=== PATIENT | male | born 1960 | race Caucasian/White ===

== ENCOUNTER 2017-02-07 11:04 | Observation (INO) | payer OTHER ==
[~2017-02-07] VITALS: Ht 182.9 cm; Wt 122.5 kg
--- NOTE | 2017-02-07 11:25 | EKG ---
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
[2017-02-07] MEDS ORDERED: ACETAMINOPHEN 325 MG TABLET PO PRN (11:45)
[2017-02-07] MEDS ORDERED: ONDANSETRON PF 4 MG/2 ML VIAL. IV PRN (11:45)
[2017-02-07 11:59] LABS: BASO # 0.1 x10^3/uL (0.0-0.2); BASO % 1 % (0-3); EOS # 0.2 x10^3/uL (0.0-0.7); EOS % 2 % (0-3); HEMATOCRIT 44.3 % (39.0-53.0); HEMOGLOBIN 15.1 g/dL (13.0-17.5); LYMPH # 2.3 x10^3/uL (1.0-4.8); LYMPH % 27 % (24-48); MEAN CORPUSCULAR HEMOGLOBIN 28 pg (25-35); MEAN CORPUSCULAR HGB CONC 34 g/dL (31-37); MEAN CORPUSCULAR VOLUME 82 fL (79-100); MONO # 0.7 x10^3/uL (0.0-1.1); MONO % 9 % (0-9); NEUT # 5.1 x10^3uL (1.8-7.7); NEUT % 61 % (31-73); PLATELET COUNT 147 x10^3/uL (140-400); RED BLOOD COUNT 5.43 x10^6/uL (4.30-5.70); RED CELL DISTRIBUTION WIDTH 14.1 % (11.5-14.5); WHITE BLOOD COUNT 8.3 x10^3/uL (4.0-11.0)
[2017-02-07 12:06] LABS: ALBUMIN 3.6 g/dL (3.4-5.0); ALBUMIN/GLOBULIN RATIO 1.1 (1.0-1.7); CALCIUM 8.7 mg/dL (8.5-10.1); GFR 77.9; MAGNESIUM 2.1 mg/dL (1.8-2.4); POTASSIUM 3.9 mmol/L (3.5-5.1); TOTAL BILIRUBIN 0.5 mg/dL (0.2-1.0); TOTAL PROTEIN 6.9 g/dL (6.4-8.2)
[2017-02-07 12:14] LABS: CREATINE KINASE 124 U/L (39-308)
[2017-02-07 12:28] VITALS: BP 135/84
[2017-02-07] MEDS ORDERED: IBUP800T19 PO (12:51)
[2017-02-07] MEDS ORDERED: ATEN25TA PO (12:51)
[2017-02-07] MEDS ORDERED: METF500T4 PO (12:51)
[2017-02-07] MEDS ORDERED: SIMV20TA3 PO (12:52)
--- NOTE | 2017-02-07 13:49 | CARD ---
APPROVED REPORT EXAM: Two-dimensional and M-mode echocardiogram with Doppler and color Doppler. Other Information Quality : Good INDICATION Abnormal ECG Dizziness and Vertigo Bradycardia 2D DIMENSIONS RVDd2.8 (2.9-3.5cm)Left Atrium(2D)4.6 (1.6-4.0cm) IVSd1.2 (0.7-1.1cm)Aortic Root(2D)2.6 (2.0-3.7cm) LVDd5.8 (3.9-5.9cm)LVOT Diameter2.2 (1.8-2.4cm) PWd1.2 (0.7-1.1cm)LVDs3.5 (2.5-4.0cm) FS (%) 30.0 %SV116.7 ml LVEF(%)60.0 (>50%) Aortic Valve AoV Peak Mason.170.6cm/sAoV VTI32.0cm AO Peak GR.11.6mmHgLVOT Peak Mason.110.0cm/s LVOT VTI 24.52cmAO Mean GR.6mmHg DIYA (VMAX)2.07jg7NWZ (VTI)2.84cm2 Mitral Valve MV E Qqbujubq86.8cm/sMV DECEL SBPR940vs MV A Dzytxitu52.6cm/sE/A Ratio1.4 Tricuspid Valve TR P. Dnnsyqnk220pf/sRAP OGCKRULQ9ypYe TR Peak Gr.38hgFmGWTI14muLu Pulmonary Vein S1 Gnhmgkrd42.5cm/sD2 Kzafjrpq75.6cm/s LEFT VENTRICLE The left ventricle is normal size. There is mild concentric left ventricular hypertrophy. The Ejectio n Fraction is 55%. There is normal LV segmental wall motion. RIGHT VENTRICLE The right ventricle is borderline dilated. The right ventricular systolic function is normal. ATRIA The left atrium is mildly dilated. The right atrium is mildly dilated. The interatrial septum is inta ct with no evidence for an atrial septal defect or patent foramen ovale as noted on 2-D or Doppler im aging. AORTIC VALVE The aortic valve is calcified but opens well. Doppler and Color Flow revealed trace aortic regurgitat ion. There is no significant aortic valvular stenosis. MITRAL VALVE The mitral valve is normal in structure and function. There is no evidence of mitral valve prolapse. There is no mitral valve stenosis. Doppler and Color-flow revealed trace to mild mitral regurgitation . TRICUSPID VALVE The tricuspid valve is normal in structure and function. Doppler and Color Flow revealed trace tricus pid regurgitation. The PA pressure was estimated at 35 mmHg. There is no tricuspid valve stenosis. PULMONIC VALVE Doppler and Color Flow revealed no pulmonic valvular regurgitation. There is no pulmonic valvular shirley nosis. GREAT VESSELS The aortic root is normal in size. The ascending aorta is mildly dilated at 3.6 cm. The IVC is normal in size and collapses >50% with inspiration. PERICARDIAL EFFUSION There is no evidence of significant pericardial effusion. Critical Notification Critical Value: No <Conclusion> The Ejection Fraction is 55%. There is normal LV segmental wall motion. Doppler and Color Flow revealed trace tricuspid regurgitation. The PA pressure was estimated at 35 mm Hg. The ascending aorta is mildly dilated at 3.6 cm.
--- NOTE | 2017-02-07 14:17 | RAD ---
Indication dizzy. Shortness of breath. PA and lateral views of the chest were obtained. No prior imaging of the chest is available. The heart and pulmonary vessels appear normal. The lungs are clear of acute infiltrates. Significant pleural fluid is not seen. There is no pneumothorax. There are modest degenerative changes in the thoracic spine. IMPRESSION: No acute or focal process is seen in the chest
[2017-02-07 15:15] VITALS: BP 135/84
--- NOTE | 2017-02-07 15:26 | PDOC2 ---
VANESA ACEVES APRN 02/07/17 1526: CONSULT Date of Admission DATE: 02/07/17 TIME: 15:23 Reason for Consult: bradycardia History of Present Illness Mr Adams is a 56 year old male with history of hypertension, hyperlipidemia and diabetes mellitus who presents for symptomatic bradycardia. He reports he has been experiencing episodes of lightheadedness with associated diaphoresis and dyspnea off and on for about 2 weeks. Today he was at work (at [employer]) and after walking down the lane began to feel lightheaded. He checked his heart rate with an oxygen sat monitor and reports his rate was 37. He then had a nurse recheck his rate and was told it was low. He presented to his primary care office for evaluation and was seen and told to come to hospital for admission and observation. He denies chest pain. He reports occasional feeling like his heart is too slow. He does take Atenolol twice daily which he reports was originally started due to a fast heart rate. He denies any syncope or problems with functional capacity. He denies any congestive symptoms. Past Medical History hypertension, hyperlipidemia and diabetes mellitus Past Surgical History repair deviated septum Family History father reportedly at 52 from sudden cardiac . 1 brother with history of ventricular tachycardia and AICD placement. Further family history includes diabetes and hypertension. 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 Current Medications Current Medications Acetaminophen (Tylenol) 650 mg PRN Q6HRS PRN PO Headaches, Temp > 101.5F; Start 02/07/17 at 11:45 Ondansetron HCl (Zofran) 4 mg PRN Q8HRS PRN IV NAUSEA/VOMITING; Start 02/07/17 at 11:45 Active Scripts Active Reported Simvastatin 20 Mg Tablet 1 Tab PO QHS Metformin Hcl 500 Mg Tablet 1 Tab PO BID Atenolol 25 Mg Tablet 1 Tab PO BID Ibuprofen 800 Mg Tablet 1 Tab PO TID PRN Allergies: Coded Allergies: fluocinonide (Verified Allergy, Mild, Rash, 02/07/17) naproxen (Verified Allergy, Mild, Hives, 02/07/17) Review of System as per HPI General: Alert, Oriented X3, Cooperative, No acute distress HEENT: Atraumatic, EOMI Heart: Regular rate, Normal S1, Normal S2, No murmurs, Other (no gallops, clicks or rubs) Abdomen: Normal bowel sounds, Soft, No tenderness Extremities: No cyanosis, Normal pulses Neuro: Normal speech, Strength at 5/5 X4 ext Psych/Mental Status: Mental status NL, Mood NL VITALS Vital Signs Date Time Temp Pulse Resp B/P (MAP) Pulse Ox O2 Delivery O2 Flow Rate FiO2 02/07/17 12:28 98.5 65 20 135/84 (101) 98 Room Air Labs Laboratory Tests Test 02/07/17 11:35 White Blood Count 8.3 x10^3/uL (4.0-11.0) Red Blood Count 5.43 x10^6/uL (4.30-5.70) Hemoglobin 15.1 g/dL (13.0-17.5) Hematocrit 44.3 % (39.0-53.0) Mean Corpuscular Volume 82 fL (79-100) Mean Corpuscular Hemoglobin 28 pg (25-35) Mean Corpuscular Hemoglobin Concent 34 g/dL (31-37) Red Cell Distribution Width 14.1 % (11.5-14.5) Platelet Count 147 x10^3/uL (140-400) Neutrophils (%) (Auto) 61 % (31-73) Lymphocytes (%) (Auto) 27 % (24-48) Monocytes (%) (Auto) 9 % (0-9) Eosinophils (%) (Auto) 2 % (0-3) Basophils (%) (Auto) 1 % (0-3) Neutrophils # (Auto) 5.1 x10^3uL (1.8-7.7) Lymphocytes # (Auto) 2.3 x10^3/uL (1.0-4.8) Monocytes # (Auto) 0.7 x10^3/uL (0.0-1.1) Eosinophils # (Auto) 0.2 x10^3/uL (0.0-0.7) Basophils # (Auto) 0.1 x10^3/uL (0.0-0.2) D-Dimer (Ofe) 0.33 mg/L (0.00-0.50) Sodium Level 141 mmol/L (136-145) Potassium Level 3.9 mmol/L (3.5-5.1) Chloride Level 106 mmol/L (98-107) Carbon Dioxide Level 26 mmol/L (21-32) Anion Gap 9 (6-14) Blood Urea Nitrogen 24 mg/dL (8-26) Creatinine 1.0 mg/dL (0.7-1.3) Estimated GFR (Cockcroft-Gault) 77.9 BUN/Creatinine Ratio 24 (6-20) Glucose Level 104 mg/dL (70-99) Calcium Level 8.7 mg/dL (8.5-10.1) Magnesium Level 2.1 mg/dL (1.8-2.4) Total Bilirubin 0.5 mg/dL (0.2-1.0) Aspartate Amino Transf (AST/SGOT) 17 U/L (15-37) Alanine Aminotransferase (ALT/SGPT) 30 U/L (16-63) Alkaline Phosphatase 65 U/L (46-116) Creatine Kinase 124 U/L (39-308) Troponin I Quantitative < 0.017 ng/mL (0-0.055) BP-Awg-B-Type Natriuretic Peptide 197 pg/mL (0-124) Total Protein 6.9 g/dL (6.4-8.2) Albumin 3.6 g/dL (3.4-5.0) Albumin/Globulin Ratio 1.1 (1.0-1.7) Thyroid Stimulating Hormone (TSH) 1.751 uIU/mL (0.358-3.740) Images telemetry - sinus rhythm 60s with frequent isolated PVCs EKG - sinus rhythm 60 bpm with PVC, non specific inferior T abn, early R transition, QTC 429. Assessment/Plan 1. bradycardia - heart rate 60-70 range currently with frequent PVCs. Hold beta blockers. 2. frequent ventricular ectopy - echo wnl. consider outpatient MPI, and month long MCT to monitor for arrhythmias and PVC burden. 3. hypertension - bp controlled. Suggest lisinopril in place of atenolol for pressure control. 4. hyperlipidemia - check lipids 5. diabetes mellitus - per PCP Problems: JAMIR GIORDANO MD 02/08/17 2320: CONSULT Allergies: Coded Allergies: fluocinonide (Verified Allergy, Mild, Rash, 02/07/17) naproxen (Verified Allergy, Mild, Hives, 02/07/17) VANESA ACEVES CLINICAL APPLICATION CONSULTANT Feb 07, 2017 15:26 JAMIR GIORDANO MD Feb 08, 2017 23:20
[2017-02-07 18:58] VITALS: BP 136/76
[2017-02-07] MEDS ORDERED: metFORMIN 500 MG TABLET PO SCH (21:00)
[2017-02-07] MEDS ORDERED: SIMVASTATIN 20 MG TABLET PO SCH (21:00)
[2017-02-07 22:55] VITALS: BP 131/70
[2017-02-07 23:52] VITALS: BP 114/76
[2017-02-08 05:11] VITALS: BP 132/72
[2017-02-08 06:23] LABS: BASO % 1 % (0-3); EOS # 0.2 x10^3/uL (0.0-0.7); EOS % 3 % (0-3); HEMATOCRIT 44.1 % (39.0-53.0); HEMOGLOBIN 14.9 g/dL (13.0-17.5); LYMPH % 26 % (24-48); MEAN CORPUSCULAR HEMOGLOBIN 27 pg (25-35); MEAN CORPUSCULAR HGB CONC 34 g/dL (31-37); MEAN CORPUSCULAR VOLUME 81 fL (79-100); MONO # 0.6 x10^3/uL (0.0-1.1); MONO % 8 % (0-9); NEUT # 4.9 x10^3uL (1.8-7.7); NEUT % 63 % (31-73); PLATELET COUNT 132 x10^3/uL (140-400); RED BLOOD COUNT 5.43 x10^6/uL (4.30-5.70); RED CELL DISTRIBUTION WIDTH 14.1 % (11.5-14.5); WHITE BLOOD COUNT 7.8 x10^3/uL (4.0-11.0)
[2017-02-08 06:36] LABS: ALBUMIN 3.4 g/dL (3.4-5.0); CALCIUM 8.1 mg/dL (8.5-10.1); CREATININE 0.9 mg/dL (0.7-1.3); GFR 87.9; MAGNESIUM 2.1 mg/dL (1.8-2.4); POTASSIUM 3.7 mmol/L (3.5-5.1); TOTAL BILIRUBIN 0.6 mg/dL (0.2-1.0); TOTAL PROTEIN 6.7 g/dL (6.4-8.2)
[2017-02-08] MEDS: metFORMIN 500 MG TABLET PO SCH ×2 (07:57→16:56)
--- NOTE | 2017-02-08 09:01 | PDOC ---
VANESA ACEVES APRN 02/08/17 0901: PROGRESS NOTES Assessment 1. bradycardia - No bradycardia since admission. I suspect low heart rate was related to PVCs. He remains 60-70 range currently with PVCs. Consider resume beta eden at 1/2 dose with outpatient MCT. 2. frequent ventricular ectopy - echo wnl. outpatient MPI, and month long MCT to monitor for arrhythmias and PVC burden. 3. hypertension - blood pressure remains controlled. 4. hyperlipidemia - FLP pending, continue statin 5. diabetes mellitus - per PCP Problems: Subjective feeling better today. no lightheadedness. one episode of lightheadedness last pm reportedly associated with bigeminal PVCs. No chest pain, no dyspnea. Objective Tele - sinus rhythm with frequent isolated PVCs, occasional couplets and rare episodes of bigeminy Vital Signs Date Time Temp Pulse Resp B/P (MAP) Pulse Ox O2 Delivery O2 Flow Rate FiO2 02/08/17 08:00 Room Air 02/08/17 05:11 97.4 60 17 132/72 (92) 96 Intake and Output 02/08/17 07:00 Intake Total 1250 ml Output Total 600 ml Balance 650 ml Intake Oral 1250 ml Output Urine Total 600 ml # Voids 2 Abdomen: Normal bowel sounds, Soft, No tenderness Heart: Regular rate, Normal S1, Normal S2 Extremities: No cyanosis, No edema, Normal pulses General: Alert, Oriented X3, Cooperative HEENT: Atraumatic, EOMI Lungs: Clear to auscultation, Normal air movement Neuro: Normal speech, Strength at 5/5 X4 ext Psych/Mental Status: Mental status NL Review of Relevant I have reviewed the following items jake (where applicable) has been applied. Labs Laboratory Tests Test 02/07/17 11:35 02/07/17 11:36 02/07/17 18:10 02/08/17 05:49 White Blood Count 8.3 x10^3/uL (4.0-11.0) 7.8 x10^3/uL (4.0-11.0) Red Blood Count 5.43 x10^6/uL (4.30-5.70) 5.43 x10^6/uL (4.30-5.70) Hemoglobin 15.1 g/dL (13.0-17.5) 14.9 g/dL (13.0-17.5) Hematocrit 44.3 % (39.0-53.0) 44.1 % (39.0-53.0) Mean Corpuscular Volume 82 fL (79-100) 81 fL (79-100) Mean Corpuscular Hemoglobin 28 pg (25-35) 27 pg (25-35) Mean Corpuscular Hemoglobin Concent 34 g/dL (31-37) 34 g/dL (31-37) Red Cell Distribution Width 14.1 % (11.5-14.5) 14.1 % (11.5-14.5) Platelet Count 147 x10^3/uL (140-400) 132 x10^3/uL (140-400) Neutrophils (%) (Auto) 61 % (31-73) 63 % (31-73) Lymphocytes (%) (Auto) 27 % (24-48) 26 % (24-48) Monocytes (%) (Auto) 9 % (0-9) 8 % (0-9) Eosinophils (%) (Auto) 2 % (0-3) 3 % (0-3) Basophils (%) (Auto) 1 % (0-3) 1 % (0-3) Neutrophils # (Auto) 5.1 x10^3uL (1.8-7.7) 4.9 x10^3uL (1.8-7.7) Lymphocytes # (Auto) 2.3 x10^3/uL (1.0-4.8) 2.0 x10^3/uL (1.0-4.8) Monocytes # (Auto) 0.7 x10^3/uL (0.0-1.1) 0.6 x10^3/uL (0.0-1.1) Eosinophils # (Auto) 0.2 x10^3/uL (0.0-0.7) 0.2 x10^3/uL (0.0-0.7) Basophils # (Auto) 0.1 x10^3/uL (0.0-0.2) 0.0 x10^3/uL (0.0-0.2) D-Dimer (Ofe) 0.33 mg/L (0.00-0.50) Sodium Level 141 mmol/L (136-145) 141 mmol/L (136-145) Potassium Level 3.9 mmol/L (3.5-5.1) 3.7 mmol/L (3.5-5.1) Chloride Level 106 mmol/L (98-107) 104 mmol/L (98-107) Carbon Dioxide Level 26 mmol/L (21-32) 29 mmol/L (21-32) Anion Gap 9 (6-14) 8 (6-14) Blood Urea Nitrogen 24 mg/dL (8-26) 16 mg/dL (8-26) Creatinine 1.0 mg/dL (0.7-1.3) 0.9 mg/dL (0.7-1.3) Estimated GFR (Cockcroft-Gault) 77.9 87.9 BUN/Creatinine Ratio 24 (6-20) 18 (6-20) Glucose Level 104 mg/dL (70-99) 128 mg/dL (70-99) Calcium Level 8.7 mg/dL (8.5-10.1) 8.1 mg/dL (8.5-10.1) Magnesium Level 2.1 mg/dL (1.8-2.4) 2.1 mg/dL (1.8-2.4) Total Bilirubin 0.5 mg/dL (0.2-1.0) 0.6 mg/dL (0.2-1.0) Aspartate Amino Transf (AST/SGOT) 17 U/L (15-37) 17 U/L (15-37) Alanine Aminotransferase (ALT/SGPT) 30 U/L (16-63) 29 U/L (16-63) Alkaline Phosphatase 65 U/L (46-116) 63 U/L (46-116) Creatine Kinase 124 U/L (39-308) 102 U/L (39-308) 67 U/L (39-308) Troponin I Quantitative < 0.017 ng/mL (0-0.055) < 0.017 ng/mL (0-0.055) < 0.017 ng/mL (0-0.055) TD-Phb-H-Type Natriuretic Peptide 197 pg/mL (0-124) Total Protein 6.9 g/dL (6.4-8.2) 6.7 g/dL (6.4-8.2) Albumin 3.6 g/dL (3.4-5.0) 3.4 g/dL (3.4-5.0) Albumin/Globulin Ratio 1.1 (1.0-1.7) 1.0 (1.0-1.7) Thyroid Stimulating Hormone (TSH) 1.751 uIU/mL (0.358-3.740) Nasal Screen MRSA (PCR) Negative (Negative) Medications Current Medications Acetaminophen (Tylenol) 650 mg PRN Q6HRS PRN PO Headaches, Temp > 101.5F; Start 02/07/17 at 11:45 Ondansetron HCl (Zofran) 4 mg PRN Q8HRS PRN IV NAUSEA/VOMITING; Start 02/07/17 at 11:45 Metformin HCl (Glucophage) 500 mg BID PO ; Start 02/07/17 at 21:00; Stop at 21:00; Status DC Simvastatin (Zocor) 20 mg QHS PO Last administered on 02/07/17 21:12; Start at 21:00 Metformin HCl (Glucophage) 500 mg BIDBFRMEAL PO Last administered on 02/08/17 07:57; Start 02/08/17 at 07:30 Active Scripts Active Reported Simvastatin 20 Mg Tablet 1 Tab PO QHS Metformin Hcl 500 Mg Tablet 1 Tab PO BID Atenolol 25 Mg Tablet 1 Tab PO BID Ibuprofen 800 Mg Tablet 1 Tab PO TID PRN Vitals/I & O Vital Sign - Last 24 Hours 02/07/17 02/07/17 02/07/17 02/07/17 12:28 15:15 18:58 20:00 Temp 98.5 98.3 97.8 Pulse 65 65 70 Resp B/P (MAP) 135/84 (101) 135/84 (101) 136/76 (96) Pulse Ox 98 98 98 O2 Delivery Room Air Room Air Room Air Room Air 02/07/17 02/07/17 02/08/17 02/08/17 22:55 23:52 05:11 08:00 Temp 97.4 Pulse 62 63 60 Resp B/P (MAP) 131/70 (90) 114/76 (89) 132/72 (92) Pulse Ox 97 96 O2 Delivery Room Air Room Air Room Air Room Air Intake and Output 6/02/07/17 02/08/17 15:00 23:00 07:00 Intake Total 950 ml 300 ml Output Total 400 ml 200 ml Balance 550 ml 100 ml JAMIR GIORDANO MD 02/08/17 8972: PROGRESS NOTES Review of Relevant Pt. seen and examined. Agree with above AG SERVICE MANAGER note. 56 y.o male with mild bradycardia, PVC's. Not taking meds on time. Normal cardiac exam with rare PVC's Restart half dose of home atenolol. Ok to DC. f/u in the office in 1 week. Discuss outpt monitor at that time. Thanks. VANESA ACEVES APRN Feb 08, 2017 09:01 JAMIR GIORDANO MD Feb 08, 2017 23:22
[2017-02-08 10:53] VITALS: BP 137/77
[2017-02-08 15:09] VITALS: BP 153/84
[2017-02-08] MEDS ORDERED: ATENOLOL 25 MG TABLET PO ONE (17:00)
[2017-02-08] MEDS ORDERED: ATEN25TA PO (17:17)
== END 2017-02-08 17:49 | disposition home or self-care (01) ==
LOC: INTOOBSV 11:04 → ICU 11:04
PROVIDERS: ADMIT Family Medicine; ATTEND Family Medicine
DX: R00.1 Bradycardia, unspecified (principal); I49.3 Ventricular premature depolarization; I10 Essential (primary) hypertension; E78.5 Hyperlipidemia, unspecified; E11.9 Type 2 diabetes mellitus without complications; Z83.3 Family history of diabetes mellitus; Z82.49 Family history of ischemic heart disease and other diseases of the circulatory system
CPT/HCPCS: 36415; 71020; 80053; 80061; 82550; 83735; 83880; 84443; 84484; 85027; 85379; 87641; 93005; 93306; G0378; G0379

== ENCOUNTER 2017-08-25 11:20 | Inpatient (IN) | payer OTHER ==
[~2017-08-25] VITALS: Ht 182.9 cm; Wt 127.9 kg
[~2017-08-25 11:20] MED LIST: ATEN25TA PO; IBUP800T19 PO; METF500T4 PO; SIMV20TA3 PO
[2017-08-25] MEDS: IV NORMAL SALINE 1,000ML 1,000 ML IV SCH ×2 (11:30→21:30)
[2017-08-25] MEDS: ENOXAPARIN 40 MG/0.4 ML DISP.SYRIN. SQ SCH (12:31)
[2017-08-25 12:34] VITALS: BP 125/53
[2017-08-25 12:44] LABS: BASO # 0.1 x10^3/uL (0.0-0.2); BASO % 1 % (0-3); EOS # 0.2 x10^3/uL (0.0-0.7); EOS % 3 % (0-3); HEMATOCRIT 48.4 % (39.0-53.0); HEMOGLOBIN 16.8 g/dL (13.0-17.5); LYMPH % 31 % (24-48); MEAN CORPUSCULAR HEMOGLOBIN 28 pg (25-35); MEAN CORPUSCULAR HGB CONC 35 g/dL (31-37); MEAN CORPUSCULAR VOLUME 80 fL (79-100); MONO # 0.6 x10^3/uL (0.0-1.1); MONO % 10 % (0-9); NEUT # 3.5 x10^3uL (1.8-7.7); NEUT % 55 % (31-73); PLATELET COUNT 184 x10^3/uL (140-400); RED BLOOD COUNT 6.04 x10^6/uL (4.30-5.70); RED CELL DISTRIBUTION WIDTH 14.4 % (11.5-14.5); WHITE BLOOD COUNT 6.4 x10^3/uL (4.0-11.0)
--- NOTE | 2017-08-25 12:45 | EKG ---
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
[2017-08-25 13:37] LABS: ALBUMIN 3.7 g/dL (3.4-5.0); ALBUMIN/GLOBULIN RATIO 1.1 (1.0-1.7); GFR 77.9; TOTAL BILIRUBIN 0.6 mg/dL (0.2-1.0)
--- NOTE | 2017-08-25 13:44 | RAD ---
Chest, 2 views, 08/25/2017: History: Tachycardia Comparison is made to a study from 02/07/2017. The heart size and pulmonary vascularity are normal. No pulmonary infiltrates are seen. There is no evidence of pleural fluid. Moderate spurring is present in the spine. IMPRESSION: No acute cardiopulmonary abnormality is detected.
[2017-08-25 16:36] VITALS: BP 116/72
[2017-08-25 20:22] VITALS: BP 135/70
[2017-08-25 23:58] VITALS: BP 147/84
[2017-08-26 03:16] LABS: HEMOGLOBIN A1C 6.6 % (4.8-5.6)
[2017-08-26] MEDS: IV NORMAL SALINE 1,000ML 1,000 ML IV SCH (04:33)
[2017-08-26 05:22] VITALS: BP 121/67
[2017-08-26 07:01] LABS: BASO # 0.1 x10^3/uL (0.0-0.2); BASO % 1 % (0-3); EOS # 0.2 x10^3/uL (0.0-0.7); EOS % 4 % (0-3); HEMATOCRIT 44.2 % (39.0-53.0); HEMOGLOBIN 15.1 g/dL (13.0-17.5); LYMPH # 1.7 x10^3/uL (1.0-4.8); LYMPH % 38 % (24-48); MEAN CORPUSCULAR HEMOGLOBIN 28 pg (25-35); MEAN CORPUSCULAR HGB CONC 34 g/dL (31-37); MEAN CORPUSCULAR VOLUME 82 fL (79-100); MONO # 0.6 x10^3/uL (0.0-1.1); MONO % 13 % (0-9); NEUT % 45 % (31-73); PLATELET COUNT 138 x10^3/uL (140-400); RED BLOOD COUNT 5.42 x10^6/uL (4.30-5.70); RED CELL DISTRIBUTION WIDTH 14.1 % (11.5-14.5); WHITE BLOOD COUNT 4.4 x10^3/uL (4.0-11.0)
[2017-08-26 07:09] LABS: CALCIUM 8.3 mg/dL (8.5-10.1); CREATININE 0.9 mg/dL (0.7-1.3); GFR 87.9; POTASSIUM 3.9 mmol/L (3.5-5.1)
--- NOTE | 2017-08-26 08:50 | CARD ---
MR#: [id number] Date of Study: 08/25/2017 Ordering Physician: MARQUES WELLS, Referring Physician: MARQUES WELLS, Tech: Ely Calvin RDCS APPROVED REPORT EXAM: Two-dimensional and M-mode echocardiogram with Doppler and color Doppler. Other Information Quality : FairHR: 72bpm Technically limited study due to body habitus. INDICATION Tachycardia 2D DIMENSIONS Left Atrium(2D)4.1 (1.6-4.0cm)IVSd0.9 (0.7-1.1cm) Aortic Root(2D)3.0 (2.0-3.7cm)LVDd5.7 (3.9-5.9cm) LVOT Diameter2.1 (1.8-2.4cm)PWd0.9 (0.7-1.1cm) LVDs4.0 (2.5-4.0cm)FS (%) 30.9 % SV94.5 mlLVEF(%)57.9 (>50%) Aortic Valve AoV Peak Mason.147.9cm/sAoV VTI30.0cm AO Peak GR.8.8mmHgLVOT Peak Mason.114.8cm/s LVOT VTI 25.20cmAO Mean GR.6mmHg DIYA (VMAX)2.24mr0QDH (VTI)2.85cm2 AI P 1/2 Lczj335eq Mitral Valve MV E Kgrllwmw90.9cm/sMV E Peak Gr.3mmHg MV DECEL [id number] A Mynivxzm28.9cm/s MV E Mean Gr.2mmHgE/A Ratio1.3 Pulmonary Valve PV Peak Eowzjkum366.3cm/sPV Peak Grad.8mmHg Tricuspid Valve TR P. Hjfaqzka684cu/sTR Peak Gr.24mmHg Pulmonary Vein S1 Bgcbilhi54.6cm/sD2 Raxmzqhr96.9cm/s LEFT VENTRICLE The left ventricle is normal size. There is normal left ventricular wall thickness. The left ventricu lar systolic function is normal. The ejection fraction is estimated at 55-60%. There is normal LV seg mental wall motion. No left ventricle thrombus noted on this study. There is no ventricular septal de fect visualized. There is no left ventricular aneurysm. There is no mass noted in the left ventricle. RIGHT VENTRICLE The right ventricle is normal size. The right ventricular systolic function is normal. ATRIA The left atrium is mildly dilated. The interatrial septum is intact with no evidence for an atrial se ptal defect or patent foramen ovale as noted on 2-D or Doppler imaging. AORTIC VALVE The aortic valve is normal in structure and function. Doppler and Color Flow revealed trace aortic re gurgitation. There is no significant aortic valvular stenosis. There is no aortic valvular vegetation . MITRAL VALVE The mitral valve is normal in structure and function. There is no evidence of mitral valve prolapse. There is no mitral valve stenosis. Doppler and Color-flow revealed mild mitral regurgitation. TRICUSPID VALVE The tricuspid valve is normal in structure and function. Doppler and Color Flow revealed trace tricus pid regurgitation. There is no tricuspid valve prolapse or vegetation. There is no tricuspid valve st enosis. PULMONIC VALVE The pulmonary valve is normal in structure and function. Doppler and Color Flow revealed no pulmonic valvular regurgitation. There is no pulmonic valvular stenosis. GREAT VESSELS The aortic root is normal in size. The ascending aorta is normal in size. The IVC was not visualized. PERICARDIAL EFFUSION There is no pleural effusion. There is no evidence of significant pericardial effusion. Critical Notification Critical Value: No <Conclusion> The left ventricular systolic function is normal. The ejection fraction is estimated at 55-60%. There is normal LV segmental wall motion. Mild mitral regurgitation. Trace tricuspid regurgitation. There is no evidence of significant pericardial effusion. Signed by : Donnell Muro, Electronically Approved : 08/26/2017 08:49:26
--- NOTE | 2017-08-26 09:05 | PDOC2 ---
VANESA ACEVES [employer] 08/26/17 0905: CONSULT Date of Admission DATE: 08/26/17 TIME: 09:02 Reason for Consult: tachycardia History of Present Illness Mr Adams is a 56 year old male with history of hypertension, hyperlipidemia and diabetes mellitus who presents for symptomatic bradycardia. He presents with complaints of palpitations since Tue evening. He had his heart rate checked at work and found it to be in the 150s. He was then seen by his PCP and again heart rate was in the 150s so he was admitted for evaluation and management. He reports some mild lightheadedness and feeling like his heart was pounding. He has had previous episodes of some chest discomfort but denies currently. He denies congestive symptoms, edema, or syncope. Past Medical History hypertension, hyperlipidemia and diabetes mellitus Past Surgical History repair deviated septum Family History father reportedly at 52 from sudden cardiac . 1 brother with history of ventricular tachycardia and AICD placement. Further family history includes diabetes and hypertension. 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 Current Medications Current Medications Sodium Chloride 1,000 ml @ 100 mls/hr Q10H IV Last administered on 08/26/17at 04 :33; Start 08/25/17 at 11:30 Enoxaparin Sodium (Lovenox) 40 mg Q24H SQ Last administered on 08/25/17at 12:31; Start 08/25/17 at 12:00 Active Scripts Active Atenolol 25 Mg Tablet 1 Tab PO DAILY Reported Simvastatin 20 Mg Tablet 1 Tab PO QHS Metformin Hcl 500 Mg Tablet 1 Tab PO BID Ibuprofen 800 Mg Tablet 1 Tab PO TID PRN Allergies: Coded Allergies: fluocinonide (Verified Allergy, Mild, Rash, 02/07/17) naproxen (Verified Allergy, Mild, Hives, 02/07/17) Review of System as per HPI General: Alert, Oriented X3, Cooperative, No acute distress HEENT: Atraumatic, EOMI, Mucous membr. moist/pink Lungs: Clear to auscultation, Normal air movement Heart: Other (irregular rhythm, frequent PVCs, no tachycardia) Abdomen: Normal bowel sounds, Soft Extremities: No cyanosis, No edema, Normal pulses Neuro: Normal speech, Strength at 5/5 X4 ext Psych/Mental Status: Mental status NL, Mood NL VITALS Vital Signs Date Time Temp Pulse Resp B/P (MAP) Pulse Ox O2 Delivery O2 Flow Rate FiO2 08/26/17 05:22 97.7 79 18 121/67 (85) 94 Room Air Labs Laboratory Tests Test 08/25/17 12:33 08/26/17 06:44 08/26/17 07:03 White Blood Count 6.4 x10^3/uL (4.0-11.0) 4.4 x10^3/uL (4.0-11.0) Red Blood Count 6.04 x10^6/uL (4.30-5.70) 5.42 x10^6/uL (4.30-5.70) Hemoglobin 16.8 g/dL (13.0-17.5) 15.1 g/dL (13.0-17.5) Hematocrit 48.4 % (39.0-53.0) 44.2 % (39.0-53.0) Mean Corpuscular Volume 80 fL (79-100) 82 fL (79-100) Mean Corpuscular Hemoglobin 28 pg (25-35) 28 pg (25-35) Mean Corpuscular Hemoglobin Concent 35 g/dL (31-37) 34 g/dL (31-37) Red Cell Distribution Width 14.4 % (11.5-14.5) 14.1 % (11.5-14.5) Platelet Count 184 x10^3/uL (140-400) 138 x10^3/uL (140-400) Neutrophils (%) (Auto) 55 % (31-73) 45 % (31-73) Lymphocytes (%) (Auto) 31 % (24-48) 38 % (24-48) Monocytes (%) (Auto) 10 % (0-9) 13 % (0-9) Eosinophils (%) (Auto) 3 % (0-3) 4 % (0-3) Basophils (%) (Auto) 1 % (0-3) 1 % (0-3) Neutrophils # (Auto) 3.5 x10^3uL (1.8-7.7) 2.0 x10^3uL (1.8-7.7) Lymphocytes # (Auto) 2.0 x10^3/uL (1.0-4.8) 1.7 x10^3/uL (1.0-4.8) Monocytes # (Auto) 0.6 x10^3/uL (0.0-1.1) 0.6 x10^3/uL (0.0-1.1) Eosinophils # (Auto) 0.2 x10^3/uL (0.0-0.7) 0.2 x10^3/uL (0.0-0.7) Basophils # (Auto) 0.1 x10^3/uL (0.0-0.2) 0.1 x10^3/uL (0.0-0.2) Sodium Level 142 mmol/L (136-145) 142 mmol/L (136-145) Potassium Level 4.0 mmol/L (3.5-5.1) 3.9 mmol/L (3.5-5.1) Chloride Level 104 mmol/L (98-107) 105 mmol/L (98-107) Carbon Dioxide Level 27 mmol/L (21-32) 28 mmol/L (21-32) Anion Gap 11 (6-14) 9 (6-14) Blood Urea Nitrogen 19 mg/dL (8-26) 16 mg/dL (8-26) Creatinine 1.0 mg/dL (0.7-1.3) 0.9 mg/dL (0.7-1.3) Estimated GFR (Cockcroft-Gault) 77.9 87.9 BUN/Creatinine Ratio 19 (6-20) Glucose Level 109 mg/dL (70-99) 154 mg/dL (70-99) Hemoglobin A1c 6.6 % (4.8-5.6) Calcium Level 9.0 mg/dL (8.5-10.1) 8.3 mg/dL (8.5-10.1) Total Bilirubin 0.6 mg/dL (0.2-1.0) Aspartate Amino Transf (AST/SGOT) 23 U/L (15-37) Alanine Aminotransferase (ALT/SGPT) 42 U/L (16-63) Alkaline Phosphatase 71 U/L (46-116) Creatine Kinase 102 U/L (39-308) Creatine Kinase MB (Mass) 0.9 ng/mL (0.0-3.6) Creatine Kinase MB Relative Index 0.9 % (0-4) Troponin I Quantitative < 0.017 ng/mL (0-0.055) Total Protein 7.0 g/dL (6.4-8.2) Albumin 3.7 g/dL (3.4-5.0) Albumin/Globulin Ratio 1.1 (1.0-1.7) Glucose (Fingerstick) 149 mg/dL (70-99) Images CXR - no acute abn EKG - sinus rhythm, PVCs, no acute ischemic changes Assessment/Plan 1. Sinus tachycardia with frequent PVCs - prior history of bradycardia with a recent MCT revealing a pvc burden of about 15% by patient report. Will schedule for stress test to rule out underlying ischemic heart disease. Continue on current dosage of atenolol as he was significantly bradycardic at higher dose. 2. hypertension - bp controlled. Continue current home meds. 3. hyperlipidemia - check lipids 4. diabetes mellitus - per PCP Problems: LORA RODRIGUEZ MD 08/26/17 1528: CONSULT Allergies: Coded Allergies: fluocinonide (Verified Allergy, Mild, Rash, 02/07/17) naproxen (Verified Allergy, Mild, Hives, 02/07/17) Assessment/Plan Patient seen and examined 1. Sinus tachycardia with frequent PVCs - prior history of bradycardia with a recent MCT revealing a pvc burden of about 15% by patient report. Will schedule for stress test to rule out underlying ischemic heart disease. Continue on current dosage of atenolol as he was significantly bradycardic at higher dose. 2. hypertension - bp controlled. Continue current home meds. 3. hyperlipidemia - check lipids 4. diabetes mellitus - per PCP Continue present treatment. MPI testing. Problems: VANESA ACEVES APRN Aug 26, 2017 09:05 LORA RODRIGUEZ MD Aug 26, 2017 15:28
[2017-08-26] MEDS ORDERED: REGADENOSON 0.4 MG/5 ML DISP.SYRIN. IV ONE (11:00)
[2017-08-26 11:02] VITALS: BP 109/68
[2017-08-26 14:23] VITALS: BP 145/89
[2017-08-26] MEDS: ENOXAPARIN 40 MG/0.4 ML DISP.SYRIN. SQ SCH (17:00)
[2017-08-26 19:12] VITALS: BP 142/82
[2017-08-26] MEDS: ACETAMINOPHEN 500 MG TABLET PO PRN (22:30)
[2017-08-26 23:35] VITALS: BP 130/79
[2017-08-27 05:34] VITALS: BP 139/74
[2017-08-27 10:40] VITALS: BP 153/77
[2017-08-27] MEDS: ENOXAPARIN 40 MG/0.4 ML DISP.SYRIN. SQ SCH (14:55)
[2017-08-27 14:57] VITALS: BP 148/64
--- NOTE | 2017-08-27 16:43 | RAD ---
MR#: [id number] Date of Study: 08/26/2017 Ordering Physician: VANESA ACEVES, Referring Physician: MAXIME CAMARENA Tech: RT Ruel (R) (N) APPROVED REPORT Test Type: Pharmacological Stress Nurse/Tech: Alek Test Indications: CP, 15% PVC burden Cardiac History: No known cardiac Resting Heart Rate: 64 bpm Resting Blood Pressure: 170/54mmHg Pretest Chest Pain: None Nurse/Tech Notes Freq PVC's No CP No ANDREY Pharm. Details Pharmacologic stress testing was performed using 0.4mg per 5ml of regadenoson given intravenously ove r 7-10 seconds. POST EXERCISE Reason for Termination: Infusion complete Max HR: 120 bpm Max Blood Pressure: 163/63mmHg Chest Pain: No. INTERPRETATION Stress EKG Conclusion: Baseline EKG showed sinus rhythm. No ischemic changes at peak stress. No arr hythmias. Imaging Protocol IMAGE PROTOCOL: Stress Tc-99m/rest Tc-99m 2 days Rest: Stress: Viability: Radiopharm.Tc99m [id number] Sestamibi Dose33.3mCi 32mCi Duration 20min. 20min. Img Date 08/27/2017 08/26/2017 Inj-Img [id number]. 60min. Rest Admin Site:IV - Right HandAdministrator: ANJELICA Berrios Stress Admin Site: IV - Right HandAdministrator: RT Ruel (R)(N) STRESS DATA End Diast. Vol.156.0mlAv. Heart Rate85.0bpm LVEDV index BSA2.0mlCardiac Output0.1L/min End Syst. Vol.69.0mlCO Index BSA7.3L/min LVESV index BSA1.0mlMyocardial Rvvr636.0g Eject. Vvjecjyn41.0% Stress Rates Pk. Fill Rate3.20EDV/secLVtime Pk. Fill 114.47msec Pk. Empty Rate3.82ESV/secLVtime Pk. Jyyoe839.87msec / Pk. Fill1.74EDV/sec Stress Scores Regional WT0.00Summed WT13.00 Regional WM0.00Summed WM2.00 LV Perfusion Stress scintigraphic images showed small reversible defect involving the apical wall consistent with ischemia. Wall Motion Normal left ventricle systolic function with ejection fraction calculated at 56%. LV Perf. Quant 17 Seg. SSS3.00 17 Seg. SRS4.00 17 Seg. SDS1.00 Stress Defect Extent (% LAD)6.90Rest Defect Extent (% LAD)4.40Rev. Defect Extent (% LAD)1.25 Stress Defect Extent (% LCX) 18.80Rest Defect Extent (% LCX)27.50Rev. Defect Extent (% LCX)0.00 Stress Defect Extent (% RCA)0.00Rest Defect Extent (% RCA)0.00Rev. Defect Extent (% RCA)0.00 Stress Defect Extent (% ESTUARDO)8.70Rest Defect Extent (% ESTUARDO)10.70Rev. Defect Extent (% ESTUARDO)0.45 Conclusion 1. Regadenoson cardioisotope stress test showed small amount of apical ischemia. 2. Normal left ventricular systolic function with ejection fraction calculated at 56%. 3. Low to intermediate risk for cardiac events. Signed by : Donnell Muro, Electronically Approved : 08/27/2017 16:43:17
--- NOTE | 2017-08-27 17:55 | PN ---
DATE: 08/26/2017 SUBJECTIVE: This is a 56-year-old gentleman with syncope and sinus tachycardia and ventricular arrhythmias. The patient still have a stress test today done. There was some intermittent chest discomfort and will be monitored. A1c was 6.6. Blood sugars were slightly elevated. Cardiac enzymes were basically unremarkable. We will wait for the report from the customer support analyst as well as making further determination otherwise. PHYSICAL EXAMINATION: LUNGS: Clear. CARDIOVASCULAR: Regular sinus rhythm. ABDOMEN: Soft, nontender. Report is still pending. IMPRESSION: Chest pain, ventricular arrhythmias. PLAN: As above. MARQUES WELLS MD DR: RUSS/loretta JOB#: [id number] / [id number]
[2017-08-27 19:27] VITALS: BP 147/70
[2017-08-27] MEDS: ACETAMINOPHEN 500 MG TABLET PO PRN (22:14)
[2017-08-27 23:23] VITALS: BP 146/71
[2017-08-28 05:43] VITALS: BP 135/77
--- NOTE | 2017-08-28 06:16 | PN ---
DATE: SUBJECTIVE: The patient ____ for second part of his thallium stress test resting phase. Otherwise, the patient denied any chest pain this morning, but he did have some yesterday morning, suppressed chest pressure. OBJECTIVE: VITAL SIGNS: Blood pressure 140/70, respiratory rate 16, pulse 62, afebrile. GENERAL: The patient is alert and oriented. LUNGS: Diminished throughout, poor movement of air. CARDIOVASCULAR: Regular sinus rhythm. ABDOMEN: Soft, nontender, morbidly obese. The patient otherwise seems to be resting fairly comfortably. Continue to monitor blood sugars, doing somewhat better in the low 130s. Continue to monitor the patient accordingly to make further evaluation as indicated. IMPRESSION: Probable angina, coronary artery disease, morbid obesity, sinus tachycardia, cardiac arrhythmias. PLAN: As above. MARQUES WELLS MD DR: RUSS/loretta JOB#: [id number] / [id number]
[2017-08-28 10:46] VITALS: BP 138/82
[2017-08-28] MEDS ORDERED: ACET500T55 PO (11:57)
[2017-08-28] MEDS: ENOXAPARIN 40 MG/0.4 ML DISP.SYRIN. SQ SCH (12:36)
[2017-08-28 14:39] VITALS: BP 138/76
--- NOTE | 2017-08-29 12:04 | PN ---
DATE: 08/28/2017 SUBJECTIVE: The patient apparently had positive nuclear stress test, will be waiting for heart catheterization problems on diversion presently. The patient without chest discomfort presently, although it comes and goes, so he needs to be monitored carefully before his heart catheterization. PHYSICAL EXAMINATION: VITAL SIGNS: Blood pressure 138/80, respiratory rate 20, pulse 70, afebrile. GENERAL: The patient is alert and oriented. LUNGS: Diminished throughout, poor movement of air but clear. CARDIOVASCULAR: Regular sinus rhythm. ABDOMEN: Soft, nontender. IMPRESSION AND PLAN: Angina, ____ positive nuclear stress test. Continue to monitor him on this as well as his blood sugars as well, type 2 diabetes, morbid obesity. MARQUES WELLS MD DR: RUSS/nts JOB#: [id number] / [id number]
== END 2017-08-28 18:55 | disposition short-term general hospital (02) | DRG 303 ==
LOC: 1 SOUTH 11:20
PROVIDERS: ADMIT Family Medicine; ATTEND Family Medicine
DX: I25.119 Atherosclerotic heart disease of native coronary artery with unspecified angina pectoris (principal); E66.01 Morbid (severe) obesity due to excess calories; E11.9 Type 2 diabetes mellitus without complications; Z68.38 Body mass index [BMI] 38.0-38.9, adult; E78.5 Hyperlipidemia, unspecified; I10 Essential (primary) hypertension; E78.00 Pure hypercholesterolemia, unspecified; I49.3 Ventricular premature depolarization; Z82.49 Family history of ischemic heart disease and other diseases of the circulatory system; Z83.3 Family history of diabetes mellitus; Z88.1 Allergy status to other antibiotic agents; Z88.8 Allergy status to other drugs, medicaments and biological substances; Z95.810 Presence of automatic (implantable) cardiac defibrillator
CPT/HCPCS: 36415; 71046; 78452; 80048; 80053; 82553; 82947; 83036; 83540; 83550; 84484; 85025; 93005; 93017; 93306; 96374; 96375; 96376; A9500; J1650; J2785; J7030

== ENCOUNTER 2017-12-16 16:52 | Observation (INO) | payer BC, OTHER ==
[~2017-12-16] VITALS: Ht 182.9 cm; Wt 133.0 kg
[~2017-12-16 16:52] MED LIST changes: +ACET500T55 PO; +CARVEDILOL 3.125 MG TABLET PO SCH; -METF500T4 PO; +METF500T5 PO
[2017-12-16 17:16] VITALS: BP 132/63
[2017-12-16] MEDS ORDERED: ATEN25TA PO (17:48)
[2017-12-16] MEDS ORDERED: ASPI325T11 PO (17:48)
[2017-12-16] MEDS ORDERED: ACETAMINOPHEN 500 MG TABLET PO PRN (18:00)
[2017-12-16] MEDS: CARVEDILOL 3.125 MG TABLET PO SCH (18:42)
[2017-12-16] MEDS: IV NORMAL SALINE 1,000ML 1,000 ML IV SCH (18:43)
[2017-12-16 18:48] LABS: BASO % 1 % (0-3); EOS # 0.2 x10^3/uL (0.0-0.7); EOS % 3 % (0-3); HEMATOCRIT 45.4 % (39.0-53.0); HEMOGLOBIN 15.6 g/dL (13.0-17.5); LYMPH # 2.3 x10^3/uL (1.0-4.8); LYMPH % 35 % (24-48); MEAN CORPUSCULAR HEMOGLOBIN 28 pg (25-35); MEAN CORPUSCULAR HGB CONC 34 g/dL (31-37); MEAN CORPUSCULAR VOLUME 81 fL (79-100); MONO # 0.5 x10^3/uL (0.0-1.1); MONO % 8 % (0-9); NEUT # 3.5 x10^3uL (1.8-7.7); NEUT % 53 % (31-73); PLATELET COUNT 151 x10^3/uL (140-400); RED BLOOD COUNT 5.59 x10^6/uL (4.30-5.70); RED CELL DISTRIBUTION WIDTH 14.3 % (11.5-14.5); WHITE BLOOD COUNT 6.6 x10^3/uL (4.0-11.0)
[2017-12-16 19:12] LABS: ALBUMIN 3.5 g/dL (3.4-5.0); ALBUMIN/GLOBULIN RATIO 1.1 (1.0-1.7); CALCIUM 8.7 mg/dL (8.5-10.1); CREATININE 1.2 mg/dL (0.7-1.3); GFR 62.9; POTASSIUM 3.7 mmol/L (3.5-5.1); TOTAL BILIRUBIN 0.5 mg/dL (0.2-1.0); TOTAL PROTEIN 6.7 g/dL (6.4-8.2)
[2017-12-16 23:43] LABS: BACTERIA,URINE FEW /HPF (0-FEW); BILIRUBIN,URINE NEG (NEG); CLARITY,URINE CLEAR; COLOR,URINE YELLOW; GLUCOSE,URINE NEG (NEG); NITRITE,URINE NEG (NEG); RBC,URINE 0 /HPF (0-2); SQUAMOUS EPITHELIAL CELL,UR OCC /LPF; UROBILINOGEN,URINE 0.2 mg/dL (0.2 mg/dL); WBC,URINE 0 /HPF (0-4)
[2017-12-17] MEDS: IV NORMAL SALINE 1,000ML 1,000 ML IV SCH ×2 (05:09→13:00)
[2017-12-17 05:15] VITALS: BP 102/47
[2017-12-17] MEDS: CARVEDILOL 3.125 MG TABLET PO SCH ×2 (08:36→17:46)
[2017-12-17] MEDS ORDERED: ENOXAPARIN 40 MG/0.4 ML DISP.SYRIN. SQ SCH (09:00)
[2017-12-17] MEDS ORDERED: ASPIRIN ENTERIC COATED 325 MG TABLET.DR. PO SCH (09:00)
[2017-12-17 11:01] VITALS: BP 130/81
--- NOTE | 2017-12-17 11:59 | RAD ---
CHEST PA LATERAL Clinical Indication: BRADYCARDIA Comparison: Chest radiograph dated 08/25/2017 Findings: Normal lung volume. No focal consolidations. Normal pulmonary vasculature. No pleural effusion or pneumothorax. The cardiomediastinal silhouette and great vessels are unchanged. No acute osseous abnormality. Moderate multilevel degenerative changes of the visualized spine. Multilevel anterior bridging osteophytes which can be seen with diffuse idiopathic skeletal hyperostosis (DISH). IMPRESSION: No acute cardiopulmonary process.
[2017-12-17 15:32] VITALS: BP 139/70
--- NOTE | 2017-12-17 17:42 | PDOC ---
PROVIDER NOTE PROVIDER NOTE PROVIDER NOTE CARDIOLOGY CONSULT NOTE: Reason for consultation: LH/Dizziness. HPI: Pleasant 57 yo man known to our office with frequent PVCs (15% burden), negative cath in 2018, HTN, DM and obesity who has had intermittent bouts of PVC 's, guerda and tachyarrhythmias. He has been unable to be uptitrate meds due to baseline bradycardia. Yesterday was at work, felt LH, dizzy and shaky and noted to have HR of 34, although this may have been miscounted PVC"s. His EKG in the office at his PCP revealed HR in the 50's with PVC's. His tele overnight has not revealed significant bradycardia. PMhx: 1. HTN 2. DLP 3. Frequent PVC's 4. DM Sochx: No alcohol, tob or illicits. Works for a [employer]. All: Flecainide, naproxen Famhx: No SCD ROS - negative for 06/04 systems reviewed unless otherwise noted above in HPI. Physical exam: Constitutional: Well developed, well nourished, no acute distress, non-toxic appearance. [] HENT: Normocephalic, atraumatic, bilateral external ears normal, oropharynx moist, no oral exudates, nose normal. [] Eyes: PERRLA, EOMI, conjunctiva normal, no discharge. [] Neck: Normal range of motion, no tenderness, supple, no stridor. [] Cardiovascular:Heart rate regular rhythm, no murmur [] Lungs & Thorax: Bilateral breath sounds clear to auscultation [] Abdomen: Bowel sounds normal, soft, no tenderness, no masses, no pulsatile masses. [] Skin: Warm, dry, no erythema, no rash. [] Back: No tenderness, no CVA tenderness. [] Extremities: No tenderness, no cyanosis, no clubbing, ROM intact, no edema. [] Neurologic: Alert and oriented X 3, normal motor function, normal sensory function, no focal deficits noted. [] Psychologic: Affect normal, judgement normal, mood normal. [] Diagnostic studies: EKG - SR with frequent PVC"s cath in 2018 - no coronary disease. Echo - normal EF - no valvular disease. Impression: 1. SR with frequent PVC"s. His PVC's may be causing some LH/Dizziness. No acute indication for pacer. RECS 1. PLan for EP eval for consideration of ablation. If not a good candidate, then plan for pacer on an outpt basis with increased doses of atenolol to reduce PVC"s. 2. May benefit from MRI scan thru [facility] for PVC/sarcoid eval. thanks Will f/u on an outpt basis. JAMIR GIORDANO MD Dec 17, 2017 17:42
[2017-12-17 17:46] VITALS: BP 139/70
[2017-12-17 18:11] LABS: HEMOGLOBIN A1C 6.8 % (4.8-5.6)
--- NOTE | 2017-12-18 12:03 | PN ---
DATE: 12/17/2017 SUBJECTIVE: A 57-year-old gentleman in with sick sinus syndrome. The patient is resting fairly comfortably. Blood pressure 130/80, respiratory rate 20, pulse 73, afebrile. The patient is showing bigeminy and other forms of PVCs. The patient's magnesium level was normal. He will be seen by Cardiology today and they will decide whether or not they need to do any type of a pacemaker. Otherwise, the chest x-ray is unremarkable. He will be followed up accordingly. Otherwise lungs clear. Cardiovascular exam, regular sinus rhythm, numerous dropped beats. IMPRESSION: Sick sinus syndrome, bradycardia. PLAN: As above. MARQUES WELLS MD DR: RUSS/loretta JOB#: [id number] / [id number]
== END 2017-12-17 18:19 | disposition home or self-care (01) ==
LOC: INTOOBSV 16:52 → 1 SOUTH 16:52
PROVIDERS: ADMIT Family Medicine; ATTEND Family Medicine
DX: R42 Dizziness and giddiness (principal); I10 Essential (primary) hypertension; E11.9 Type 2 diabetes mellitus without complications; E78.5 Hyperlipidemia, unspecified; E78.00 Pure hypercholesterolemia, unspecified; R00.8 Other abnormalities of heart beat; I49.3 Ventricular premature depolarization; R53.83 Other fatigue; R06.02 Shortness of breath; R53.81 Other malaise
CPT/HCPCS: 36415; 71046; 80053; 81001; 82553; 83036; 83735; 84443; 84484; 85025; 96360; 96361; G0378; G0379; J1650; J7030

== ENCOUNTER 2017-12-22 10:52 | Emergency (ER) | payer BC ==
[~2017-12-22] VITALS: Ht 365.8 cm; Wt 132.9 kg
[~2017-12-22 10:52] MED LIST changes: +ASPI325T11 PO; -CARVEDILOL 3.125 MG TABLET PO SCH
--- NOTE | 2017-12-22 11:35 | EKG ---
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
--- NOTE | 2017-12-22 11:54 | RAD ---
CT HEAD WO CONTRAST History: DIZZINESS Comparison: None. Technique: Noncontrast CT imaging was performed of the head. Exposure: One or more of the following individualized dose reduction techniques were utilized for this examination: 1. Automated exposure control 2. Adjustment of the mA and/or kV according to patient size 3. Use of iterative reconstruction technique. Findings: No acute extra-axial or parenchymal hemorrhage is identified. There is no significant intra-axial mass effect, midline shift, or extra-axial fluid collection. The rodarte-white differentiation of the major vascular territories is preserved. The ventricles, sulci, and cisterns are within normal limits in size and configuration. The mastoid air cells and the visualized paranasal sinuses are aerated. No acute calvarial abnormality is identified. Impression: 1. No acute intracranial abnormality is identified. Electronically signed by: Mahesh Jameson MD (12/22/2017 11:51 AM) [id number]
[2017-12-22 12:00] LABS: BASO # 0.1 x10^3/uL (0.0-0.2); BASO % 1 % (0-3); EOS # 0.1 x10^3/uL (0.0-0.7); EOS % 2 % (0-3); HEMATOCRIT 48.9 % (39.0-53.0); HEMOGLOBIN 16.7 g/dL (13.0-17.5); LYMPH # 1.9 x10^3/uL (1.0-4.8); LYMPH % 30 % (24-48); MEAN CORPUSCULAR HEMOGLOBIN 28 pg (25-35); MEAN CORPUSCULAR HGB CONC 34 g/dL (31-37); MEAN CORPUSCULAR VOLUME 81 fL (79-100); MONO # 0.6 x10^3/uL (0.0-1.1); MONO % 9 % (0-9); NEUT # 3.7 x10^3uL (1.8-7.7); NEUT % 58 % (31-73); PLATELET COUNT 154 x10^3/uL (140-400); RED BLOOD COUNT 6.07 x10^6/uL (4.30-5.70); WHITE BLOOD COUNT 6.3 x10^3/uL (4.0-11.0)
[2017-12-22 12:15] LABS: BACTERIA,URINE 0 /HPF (0-FEW); BILIRUBIN,URINE NEG (NEG); CLARITY,URINE CLEAR; COLOR,URINE YELLOW; GLUCOSE,URINE NEG (NEG); NITRITE,URINE NEG (NEG); RBC,URINE 0 /HPF (0-2); UROBILINOGEN,URINE 0.2 mg/dL (0.2 mg/dL); WBC,URINE RARE /HPF (0-4)
[2017-12-22 12:24] LABS: ALBUMIN 3.6 g/dL (3.4-5.0); CALCIUM 8.7 mg/dL (8.5-10.1); CREATININE 0.9 mg/dL (0.7-1.3); GFR 87.6; MAGNESIUM 2.2 mg/dL (1.8-2.4); POTASSIUM 3.7 mmol/L (3.5-5.1); TOTAL BILIRUBIN 0.6 mg/dL (0.2-1.0); TOTAL PROTEIN 7.1 g/dL (6.4-8.2)
[2017-12-22 12:50] VITALS: BP 142/94
--- NOTE | 2017-12-22 13:30 | PHYS DOC ---
Past History Past Medical History: Arrhythmia Past Surgical History: No Surgical History Alcohol Use: None Drug Use: None Adult General Chief Complaint Chief Complaint: Palpitations [facility] HPI 57-year-old male patient with history of symptomatic bradycardia obtaining of 1 episodes of dizziness while he was at work this morning with not feeling his usual. Patient complaining of a mild feeling of skipping heartbeats and nausea without focal neuro deficit, headache, chest pain, palpitation, shortness of breath. Patient states he has appointment with tube knitter on December 27. Review of Systems Review of Systems Constitutional: Denies fever or chills [] Eyes: Denies change in visual acuity, redness, or eye pain [] HENT: Denies nasal congestion or sore throat [] Respiratory: Denies cough or shortness of breath [] Cardiovascular: No additional information not addressed in HPI [] GI: Denies abdominal pain, nausea, vomiting, bloody stools or diarrhea [] : Denies dysuria or hematuria [] Musculoskeletal: Denies back pain or joint pain [] Integument: Denies rash or skin lesions [] Neurologic: Denies headache, focal weakness or sensory changes [] Endocrine: Denies polyuria or polydipsia [] All other systems were reviewed and found to be within normal limits, except as documented in this note. Allergies Allergies Allergies Coded Allergies Type Severity Reaction Last Updated Verified fluocinonide Allergy Mild Rash 02/07/17 Yes naproxen Allergy Mild Hives 02/07/17 Yes Physical Exam Physical Exam Constitutional: Well developed, well nourished, no acute distress, non-toxic appearance. [] HENT: Normocephalic, atraumatic, bilateral external ears normal, oropharynx moist, no oral exudates, nose normal. [] Eyes: PERRLA, EOMI, conjunctiva normal, no discharge. [] Neck: Normal range of motion, no tenderness, supple, no stridor. [] Cardiovascular:Heart rate regular rhythm, no murmur [] Lungs & Thorax: Bilateral breath sounds clear to auscultation [] Abdomen: Bowel sounds normal, soft, no tenderness, no masses, no pulsatile masses. [] Skin: Warm, dry, no erythema, no rash. [] Back: No tenderness, no CVA tenderness. [] Extremities: No tenderness, no cyanosis, no clubbing, ROM intact, no edema. [] Neurologic: Alert and oriented X 3, normal motor function, normal sensory function, no focal deficits noted. [] Psychologic: Affect normal, judgement normal, mood normal. [] Current Patient Data Vital Signs Vital Signs Date Time Temp Pulse Resp B/P (MAP) Pulse Ox O2 Delivery O2 Flow Rate FiO2 12/22/17 12:50 80 18 142/94 (110) 98 Room Air 12/22/17 11:34 98.1 Lab Results Laboratory Tests Test 12/22/17 11:38 12/22/17 11:40 Urine Collection Type Unknown Urine Color Yellow Urine Clarity Clear Urine pH 5.5 Urine Specific [place] 1.010 Urine Protein Neg (NEG-TRACE) Urine Glucose (UA) Neg mg/dL (NEG) Urine Ketones (Stick) Neg mg/dL (NEG) Urine Blood Neg (NEG) Urine Nitrite Neg (NEG) Urine Bilirubin Neg (NEG) Urine Urobilinogen Dipstick 0.2 mg/dL (0.2 mg/dL) Urine Leukocyte Esterase Neg (NEG) Urine RBC 0 /HPF (0-2) Urine WBC Rare /HPF (0-4) Urine Squamous Epithelial Cells None /LPF Urine Bacteria 0 /HPF (0-FEW) White Blood Count 6.3 x10^3/uL (4.0-11.0) Red Blood Count 6.07 x10^6/uL (4.30-5.70) H Hemoglobin 16.7 g/dL (13.0-17.5) Hematocrit 48.9 % (39.0-53.0) Mean Corpuscular Volume 81 fL (79-100) Mean Corpuscular Hemoglobin 28 pg (25-35) Mean Corpuscular Hemoglobin Concent 34 g/dL (31-37) Red Cell Distribution Width 14.0 % (11.5-14.5) Platelet Count 154 x10^3/uL (140-400) Neutrophils (%) (Auto) 58 % (31-73) Lymphocytes (%) (Auto) 30 % (24-48) Monocytes (%) (Auto) 9 % (0-9) Eosinophils (%) (Auto) 2 % (0-3) Basophils (%) (Auto) 1 % (0-3) Neutrophils # (Auto) 3.7 x10^3uL (1.8-7.7) Lymphocytes # (Auto) 1.9 x10^3/uL (1.0-4.8) Monocytes # (Auto) 0.6 x10^3/uL (0.0-1.1) Eosinophils # (Auto) 0.1 x10^3/uL (0.0-0.7) Basophils # (Auto) 0.1 x10^3/uL (0.0-0.2) Prothrombin Time 10.9 SEC (9.4-11.4) Prothrombin Time INR 1.1 (0.9-1.1) Sodium Level 136 mmol/L (136-145) Potassium Level 3.7 mmol/L (3.5-5.1) Chloride Level 102 mmol/L (98-107) Carbon Dioxide Level 25 mmol/L (21-32) Anion Gap 9 (6-14) Blood Urea Nitrogen 21 mg/dL (8-26) Creatinine 0.9 mg/dL (0.7-1.3) Estimated GFR (Cockcroft-Gault) 87.6 BUN/Creatinine Ratio 23 (6-20) H Glucose Level 166 mg/dL (70-99) H Calcium Level 8.7 mg/dL (8.5-10.1) Magnesium Level 2.2 mg/dL (1.8-2.4) Total Bilirubin 0.6 mg/dL (0.2-1.0) Aspartate Amino Transferase (AST) 18 U/L (15-37) Alanine Aminotransferase (ALT) 40 U/L (16-63) Alkaline Phosphatase 81 U/L (46-116) Creatine Kinase 98 U/L (39-308) Creatine Kinase MB (Mass) 1.1 ng/mL (0.0-3.6) Creatine Kinase MB Relative Index 1.1 % (0-4) Troponin I Quantitative < 0.017 ng/mL (0-0.055) PP-Kkx-B-Type Natriuretic Peptide 78 pg/mL (0-124) Total Protein 7.1 g/dL (6.4-8.2) Albumin 3.6 g/dL (3.4-5.0) Albumin/Globulin Ratio 1.0 (1.0-1.7) EKG EKG EKG interpreted by me. EKG at 1116 showed normal sinus rhythm at rate of 81, PVCs, left fourth axis deviation, prolonged QT, no acute ST and T wave abnormality,[] Radiology/Procedures Radiology/Procedures [] [address] [address] IMAGING REPORT Signed PATIENT: KARYN FERNANDES ACCOUNT: [id number] : 1960 LOCATION: ER AGE: 57 SEX: M EXAM STATUS: REG ER ORD. PHYSICIAN: MONICA MENDIOLA MD REASON: dizziness PROCEDURE: CT HEAD WO CONTRAST CT HEAD WO CONTRAST History: DIZZINESS Comparison: None. Technique: Noncontrast CT imaging was performed of the head. Exposure: One or more of the following individualized dose reduction techniques were utilized for this examination: 1. Automated exposure control 2. Adjustment of the mA and/or kV according to patient size 3. Use of iterative reconstruction technique. Findings: No acute extra-axial or parenchymal hemorrhage is identified. There is no significant intra-axial mass effect, midline shift, or extra-axial fluid collection. The rodarte-white differentiation of the major vascular territories is preserved. The ventricles, sulci, and cisterns are within normal limits in size and configuration. The mastoid air cells and the visualized paranasal sinuses are aerated. No acute calvarial abnormality is identified. Impression: 1. No acute intracranial abnormality is identified. Electronically signed by: Petrona Yoo MD (12/22/2017 11:51 AM) [id number] DICTATED AND SIGNED BY: PETRONA YOO MD DATE: 12/22/17 1149 Course & Med Decision Making Course & Med Decision Making Pertinent Labs and Imaging studies reviewed. (See chart for details) Evaluation of patient in ER showed 57-year-old male patient with history of symptomatic bradycardia presented to ER with marked episodes of dizziness and arrhythmia. Patient had unremarkable physical exam. EKG and personnel monitor showed few PVCs. Labs and chest x-ray and CT head was unremarkable. Patient has appointment with his tube knitter next week with Dr. Wells informed at 1310 and agreed to discharge patient home and follow up with his appointment next week. [] Dragon Disclaimer Dragon Disclaimer This electronic medical record was generated, in whole or in part, using a voice recognition dictation system. Departure Departure: Impression: Primary Impression: Dizziness Additional Impression: Cardiac arrhythmia due to premature depolarization Disposition: HOME, SELF-CARE (At 1328) Condition: IMPROVED Referrals: MARQUES WELLS MD (PCP) Patient Instructions: Dizziness, Palpitations Additional Instructions: Follow-up with your heart doctor as scheduled next week Return to ER if not getting better Problem Qualifiers MONICA MENDIOLA MD December 22, 2017 13:30
--- NOTE | 2017-12-23 08:08 | RAD ---
Single view Chest 12/22/2017 1:23 PM Indication: dizziness Comparison: Chest radiograph December 16, 2017 Findings: There is no focal consolidation or infiltrate identified. There is no effusion or pneumothorax. The cardiomediastinal silhouette and pulmonary vasculature are within normal limits. No osseous abnormality is identified. Impression: No evidence of acute cardiopulmonary process.
== END 2017-12-22 13:56 | disposition home or self-care (01) ==
LOC: ER 10:52
DX: I49.8 Other specified cardiac arrhythmias (principal); R42 Dizziness and giddiness; Z88.6 Allergy status to analgesic agent; Z88.8 Allergy status to other drugs, medicaments and biological substances
CPT/HCPCS: 36415; 70450; 71045; 80053; 81001; 82553; 83735; 83880; 84484; 85025; 85610; 93005; 99285-25